=== PATIENT | male | born 1980 | race Caucasian/White ===

== ENCOUNTER 2017-01-26 23:14 | Emergency (ER) | payer MEDICAID ==
[~2017-01-26] VITALS: Ht 165.1 cm; Wt 68.4 kg
[2017-01-26 23:16] VITALS: Ht 165.1 cm; Wt 68.4 kg
[2017-01-27] MEDS ORDERED: KETOROLAC 30 MG INJ IV STA (00:02)
[2017-01-27 00:43] LABS: ABNORMAL IP MESSAGE 1; BASOPHILS % 0.2 % (0.0-2.0); EOSINOPHILS % 0.1 % (0.0-7.0); HEMATOCRIT 39.5 % (42.0-52.0); HEMOGLOBIN 13.3 g/dl (14.0-18.0); LYMPHOCYTES # 0.4 10^3/ul (0.8-2.9); LYMPHOCYTES % 3.4 % (15.0-51.0); MEAN CORPUSCULAR HEMOGLOBIN 30.3 pg (29.0-33.0); MEAN CORPUSCULAR HGB CONC 33.7 g/dl (32.0-37.0); MEAN PLATELET VOLUME 10.6 fl (7.4-10.4); MONOCYTE # 0.5 10^3/ul (0.3-0.9); NEUTROPHIL # 10.7 10^3/ul (1.6-7.5); PLATELET COUNT 181 10^3/UL (140-415); POSITIVE DIFF @See below; RED BLOOD COUNT 4.39 10^6/ul (4.70-6.10); RED CELL DISTRIBUTION WIDTH 13.1 % (11.5-14.5); WHITE BLOOD COUNT 11.6 10^3/ul (4.8-10.8)
[2017-01-27 01:07] LABS: ALBUMIN 4.3 g/dl (3.3-4.9); ALBUMIN/GLOBULIN RATIO 1.1; BILIRUBIN,INDIRECT 0.4 mg/dl (0-1.1); BILIRUBIN,TOTAL 0.4 mg/dl (0.2-1.3); CALCIUM 9.3 mg/dl (8.4-10.2); CREATININE 0.72 mg/dl (0.61-1.24); POTASSIUM 3.9 mmol/L (3.5-5.1); TOTAL PROTEIN 8.2 g/dl (6.1-8.1)
--- NOTE | 2017-01-27 01:12 | ERD ---
ER Documentation Chief Complaint Chief Complaint sore throat x 3 days HPI Patient is a 36-year-old male who presents to the ED for concerns of throat pain 3 days. Patient states he has pain with swelling. Patient denies any drooling or trismus. Patient towards intermittent fevers. Patient states he had fever earlier today while he was at his primary care physician's clinic however he does not recall how high it was. Patient denies any cough or rhinorrhea. Patient denies any abdominal pain, nausea, vomiting or diarrhea. Patient denies any recent travel or sick contacts. Patient was referred to the ED by [employer] [facility] nurse for concerns of epiglottitis. ROS All systems reviewed and are negative except as per history of present illness. Medications Home Meds Active Scripts Ibuprofen* (Motrin*) 600 Mg Tab, 600 MG PO Q6, #20 TAB Prov:MYKEL ALMANZA PA-C 01/27/17 Clindamycin Hcl* (Clindamycin Hcl*) 300 Mg Capsule, 300 MG PO TID for 10 Days, CAP Prov:MYKEL ALMANZA PA-C 01/27/17 Allergies Allergies: Coded Allergies: No Known Allergy (Unverified , 01/26/17) PMhx/Soc Medical and Surgical Hx: pt denies Medical Hx, pt denies Surgical Hx Hx Alcohol Use: No Hx Substance Use: No Hx Tobacco Use: No Smoking Status: Never smoker FmHx Family History: No diabetes Physical Exam Vitals Vital Signs Date Time Temp Pulse Resp B/P Pulse Ox O2 Delivery O2 Flow Rate FiO2 01/27/17 02:53 98.3 68 22 98 Room Air 01/26/17 23:16 100.6 80 18 122/74 98 Physical Exam GENERAL: Well-developed, well-nourished male. Appears in no acute distress. HEAD: Normocephalic, atraumatic. No deformities or ecchymosis. EYE: Pupils equal, round, and reactive to light. EOMs intact. No conjunctival erythema. No eye discharge. ENT: External ear without any masses or tenderness. Auditory canals clear bilaterally. TM visualized bilaterally, non-erythematous, non-bulging. Nasal mucosa pink with no discharge. Oropharynx is erythematous. L sided tonsillar enlargement noted. No exudates noted. No uvula deviation. No kissing tonsils. No trismus. No drooling. NECK: Supple. No meningismus. Normal ROM of the neck. LUNGS: Clear to auscultation bilaterally. No rhonchi, wheezing, rales or coarse breath sounds. HEART: Regular rate and rhythm. No murmurs, rubs or gallops. EXTREMITES: Equal pulses bilaterally. No peripheral clubbing, cyanosis or edema. No unilateral leg swelling. NEUROLOGIC: Alert and oriented to person, place and time. Moving all four extremities. 5/5 strength in all extremities. Normal speech. Steady gait. SKIN: Normal color. Warm and dry. No rashes or lesions. Result Diagram: 01/27/172001/27/1720 Results 24 hrs Laboratory Tests Test 01/27/17 00:21 White Blood Count 11.610^3/ul Red Blood Count 4.3910^6/ul Hemoglobin 13.3g/dl Hematocrit 39.5% Mean Corpuscular Volume 90.0fl Mean Corpuscular Hemoglobin 30.3pg Mean Corpuscular Hemoglobin Concent 33.7g/dl Red Cell Distribution Width 13.1% Platelet Count 63843^3/UL Mean Platelet Volume 10.6fl Neutrophils % 92.0% Lymphocytes % 3.4% Monocytes % 4.0% Eosinophils % 0.1% Basophils % 0.2% Nucleated Red Blood Cells % 0.0/100WBC Neutrophils # 10.710^3/ul Lymphocytes # 0.410^3/ul Monocytes # 0.510^3/ul Eosinophils # 0.010^3/ul Basophils # 0.010^3/ul Nucleated Red Blood Cells # 0.010^3/ul Sodium Level 141mmol/L Potassium Level 3.9mmol/L Chloride Level 106mmol/L Carbon Dioxide Level 25mmol/L Anion Gap 14 Blood Urea Nitrogen 15mg/dl Creatinine 0.72mg/dl Glucose Level 109mg/dl Calcium Level 9.3mg/dl Total Bilirubin 0.4mg/dl Direct Bilirubin 0.00mg/dl Indirect Bilirubin 0.4mg/dl Aspartate Amino Transf (AST/SGOT) 33IU/L Alanine Aminotransferase (ALT/SGPT) 38IU/L Alkaline Phosphatase 77IU/L Total Protein 8.2g/dl Albumin 4.3g/dl Globulin 3.90g/dl Albumin/Globulin Ratio 1.10 Current Medications Medications (Trade) Dose Ordered Sig/Vinicio Route PRN Reason Start Time Stop Time Status Last Admin Dose Admin Ketorolac Tromethamine 30 mg 30 mg ONCE STAT IV 01/27/17 00:02 01/27/17 00:06 DC 01/27/17 00:41 Ampicillin Sodium/ Sulbactam Sodium (Unasyn 3gm/NS (Pmx)) 100 ml @ 100 mls/hr ONCE ONCE IVPB 01/27/17 01:30 01/27/17 02:29 DC 01/27/17 02:07 IV Flush 10 ml 10 ml STK-MED ONCE .ROUTE 01/27/17 01:46 01/27/17 01:47 DC 01/27/17 01:55 Sodium Chloride (NS) 100 ml @ ud STK-MED ONCE .ROUTE 01/27/17 01:46 01/27/17 01:47 DC 01/27/17 01:55 Iohexol (Omnipaque 300mg/ ml) 150 ml STK-MED ONCE .ROUTE 01/27/17 01:46 01/27/17 01:47 DC 01/27/17 01:55 Procedures/MDM ED COURSE: The patient was stable throughout ED course. I kept the patient and/or family informed of laboratory and diagnostic imaging results throughout the ED course. DIAGNOSTIC IMAGING: Read by radiologist. DIAGNOSTIC IMAGING REPORT Patient: KIT QUINTANA : 1980 Age: 36 Sex: M MR #: [id number] DOS: 01/27/17 0133 Ordering MD: MYKEL ALMANZA PA-C Location: [facility] Room/Bed: PROCEDURE: CT soft tissue neck with contrast CLINICAL INDICATION: Neck pain. Suspected peritonsillar abscess. TECHNIQUE: Thin section spiral CT images through the neck after intravenous administration of 90 cc of Omnipaque-300. Coronal and sagittal reformations were obtained. The images were reviewed on a PACS workstation. The total CTDIvol is 8.71 mGy and the DLP is 230.95 mGy-cm. One or more of the following dose reduction techniques were used: automated exposure control, adjustment of the mA and/or kV according to patient size, or use of iterative reconstruction technique. COMPARISON: No prior studies are available for comparison. FINDINGS: There is left tonsillar edema with phlegmonous change and early abscess formation with low attenuation centrally within the tonsil measuring approximately 1.6 x 1.3 cm. This is centered about a calcified tonsilith. There is prominent edema of the uvula. The epiglottis is normal in appearance. The right tonsil and adenoids are unremarkable in appearance. The visualized intracranial structures and orbital structures are unremarkable. Shoddy bilateral cervical lymph nodes are seen. The thyroid is unremarkable appearance. The lung apices are clear. No prevertebral soft tissue swelling or gas is seen.. IMPRESSION: Phlegmonous change of the left tonsil with early abscess formation measuring approximately 1.6 x 1.3 cm. Edema of the uvula. RPTAT: [facility] Physician [place] Date Time Electronically viewed and signed by Peri Madrigal Physician on 01/27/2017 02 :18 LE/ CC: MYKEL ALMANZA PA-C PROCEDURES: None. MEDICATIONS GIVEN: Toradol, Unasyn Patient tolerated medication well with no adverse reactions. MEDICAL DECISION MAKING: Patient is a 36-year-old male who presents the ED for concerns of throat pain 3 days. Patient was referred to the ED further workup for concerns of an epiglottitis. Vital signs were reviewed. Patient was noted to have a trigger of 100.6 Fahrenheit. Patient was not hypoxic. The patient does not have trismus , muffled voice, uvula deviation, unilateral tonsillar swelling, or drooling. Blood work was obtained. Patient was noted to have a white count 11.6. CT soft tissue of the neck showed Phlegmonous change of the left tonsil with early abscess formation measuring approximately 1.6 x 1.3 cm. Edema of the uvula. Discussed findings of my supervising physician, Dr. Brown, who agreed that patient was stable for outpatient management. Patient does not require any emergent incision and drainage. She was given a dose of Unasyn prior to discharge. The patient's presentation is most consistent with early peritonsillar abscess. Low suspicion for epiglottitis, retropharyngeal abscess , Balta's angina, strep pharyngitis, dental pain, meningitis. Admission for sepsis. PRESCRIPTIONS: Clindamycin, ibuprofen DISCHARGE: At this time, patient is stable for discharge and outpatient management. Supportive therapies such as OTC throat lozenges and warm salt water gurgles were discussed. I have instructed the patient to follow-up with his/her primary care physician in 1-2 days. I have discussed with the patient the possibility of needing to see a specialist for further workup and imaging studies if symptoms persist. I have instructed the patient to promptly return to the ER for any new or worsening symptoms including increased pain, fever, nausea, vomiting, weakness or LOC. The patient and/or family expressed understanding of and agreement with this plan. All questions were answered. Home care instructions were provided. Disclaimer: Inadvertent spelling and grammatical errors are likely due to EHR/ dictation software use and do not reflect on the overall quality of patient care. Also, please note that the electronic time recorded on this note does not necessarily reflect the actual time of the patient encounter. Departure Diagnosis: Primary Impression: Peritonsillar abscess Condition: Stable Referrals: LILLIAN APONTE MD [facility] Additional Instructions: Follow up with her primary care physician in the next 1-2 days. Return to the ED for any new or worsening symptoms. Follow-up with an ENT if needed. MYKEL ALMANZA PA-C Jan 27, 2017 01:12
[2017-01-27] MEDS ORDERED: AMPICILLIN/SULB 3 GM/NS (PMX) 100 ML IVPB ONE (01:30)
[2017-01-27] MEDS ORDERED: SOD CHLORIDE 0.9% 100 ML ONE (01:46)
[2017-01-27] MEDS ORDERED: IOHEXOL 300MG/ML 150 ML BTL ONE (01:46)
--- NOTE | 2017-01-27 02:19 | RADRPT ---
PROCEDURE: CT soft tissue neck with contrast CLINICAL INDICATION: Neck pain. Suspected peritonsillar abscess. TECHNIQUE: Thin section spiral CT images through the neck after intravenous administration of 90 c c of Omnipaque-300. Coronal and sagittal reformations were obtained. The images were reviewed on a [employer] workstation. The total CTDIvol is 8.71 mGy and the DLP is 230.95 mGy-cm. One or more of the foll owing dose reduction techniques were used: automated exposure control, adjustment of the mA and/or k V according to patient size, or use of iterative reconstruction technique. COMPARISON: No prior studies are available for comparison. FINDINGS: There is left tonsillar edema with phlegmonous change and early abscess formation with low attenuati on centrally within the tonsil measuring approximately 1.6 x 1.3 cm. This is centered about a calcif ied tonsilith. There is prominent edema of the uvula. The epiglottis is normal in appearance. The ri ght tonsil and adenoids are unremarkable in appearance. The visualized intracranial structures and o rbital structures are unremarkable. Shoddy bilateral cervical lymph nodes are seen. The thyroid is u nremarkable appearance. The lung apices are clear. No prevertebral soft tissue swelling or gas is se en.. IMPRESSION: Phlegmonous change of the left tonsil with early abscess formation measuring approximately 1.6 x 1.3 cm. Edema of the uvula. RPTAT: [facility] Physician [place] Date Time Electronically viewed and signed by Physician [place]ara on 01/27/2017 02:18 KRISSY/
[2017-01-27] MEDS ORDERED: CLIN-73 PO (02:44)
[2017-01-27] MEDS ORDERED: IBUP-1542 PO (02:45)
[2017-01-27 02:53] VITALS: PULSE 68; RESP 22; TEMP 98.3
== END 2017-01-27 03:30 | disposition home or self-care (01) ==
LOC: FTE 23:14
DX: J36 Peritonsillar abscess (principal)
CPT/HCPCS: 36415; 70491; 80053; 85025; 96374; 96375; J0295; J1885; Q9967; Z7502; Z7610